=== PATIENT | female | born 1965 | race Caucasian/White ===

== ENCOUNTER 2020-01-30 12:23 | Inpatient (IN) | payer MEDICAID ==
[~2020-01-30] VITALS: Ht 165.1 cm; Wt 73.1 kg
[2020-01-30 13:46] LABS: CHLORIDE 105 mEq/L (98-107)
[2020-01-30 13:54] LABS: BASOPHILS % 0.6 % (0.0-2.0); EOSINOPHILS % 1.3 % (0.0-5.0); HEMATOCRIT. 36.1 % (36.0-48.0); HEMOGLOBIN. 12.4 g/dL (12.0-16.0); MEAN CORPUSCULAR HEMOGLOBIN 30.2 pg (28.0-32.0); MEAN CORPUSCULAR VOLUME 88.2 fL (81.0-99.0); NEUTROPHILS % 52.1 % (40.0-76.0); PLATELET 418 x1000/uL (130-400); RED CELL DISTRIBUTION WIDTH 12.7 % (11.6-14.6)
[2020-01-30] MEDS ORDERED: ASPIRIN 325MG EC TABLET PO ONE (14:00)
[2020-01-30] MEDS ORDERED: CLONIDINE 0.1MG TABLET PO PRN (16:45)
[2020-01-30] MEDS ORDERED: ONDANSETRON HCL 4MG/2ML INJ IV PRN (16:45)
[2020-01-30] MEDS ORDERED: MORPHINE SULFATE 2 MG/ML CPJ (NOT FOR IM USE) IV PRN (16:45)
[2020-01-30] MEDS ORDERED: IPRATROPIUM/ALBUTEROL 0.5-3(2.5)MG/3ML NEB HHN PRN (16:45)
[2020-01-30 16:55] LABS: PHOSPHORUS 3.6 mg/dL (2.5-4.9)
[2020-01-30 17:50] VITALS: BP 145/71
[2020-01-30] MEDS ORDERED: METF-416 MT (18:04)
[2020-01-30] MEDS ORDERED: ATOR-2 MT (18:04)
[2020-01-30 18:41] VITALS: BP 145/71
[2020-01-30 20:00] VITALS: BP 142/75
[2020-01-30] MEDS: BLOOD SUGAR DIAGNOSTIC STRIP TEST SCH (20:34)
[2020-01-30] MEDS ORDERED: DEXTROSE 50% WATER 50ML SYRINGE IV PRN (21:45)
[2020-01-30 22:00] VITALS: BP 150/75
[2020-01-30] MEDS: ATORVASTATIN CALCIUM 40MG TABLET PO SCH (22:10)
[2020-01-30] MEDS: METOPROLOL TARTRATE 25MG TABLET PO SCH (22:10)
[2020-01-30] MEDS: INSULIN LISPRO 100 UNITS/ML SUBCUT SCH (22:12)
[2020-01-31] VITALS (14 sets, daily range): BP systolic 108–146; BP diastolic 53–70
[2020-01-31 06:36] LABS: BASOPHILS % 0.4 % (0.0-2.0); EOSINOPHILS % 1.4 % (0.0-5.0); HEMATOCRIT. 34.4 % (36.0-48.0); HEMOGLOBIN. 11.8 g/dL (12.0-16.0); LYMPHOCYTES % 31.9 % (20.0-50.0); MEAN CORPUSCULAR HEMOGLOBIN 30.1 pg (28.0-32.0); MEAN CORPUSCULAR VOLUME 87.7 fL (81.0-99.0); MEAN PLATELET VOLUME 9.1 fl (7.4-10.4); MONOCYTES % 6.8 % (2.0-8.0); NEUTROPHILS % 59.5 % (40.0-76.0); PLATELET 399 x1000/uL (130-400); RED BLOOD CELL COUNT 3.93 mill/uL (4.2-5.4); RED CELL DISTRIBUTION WIDTH 13.1 % (11.6-14.6)
[2020-01-31] MEDS: BLOOD SUGAR DIAGNOSTIC STRIP TEST SCH ×4 (06:36→22:17)
[2020-01-31 07:01] LABS: CHLORIDE 103 mEq/L (98-107)
[2020-01-31 07:11] LABS: HDL CHOLESTEROL 30 mg/dL (40-59); LDL CHOLESTEROL 110 mg/dL (5-100)
[2020-01-31] MEDS ORDERED: METFORMIN HCL 500MG TABLET PO SCH (07:20)
[2020-01-31] MEDS: INSULIN LISPRO 100 UNITS/ML SUBCUT SCH ×4 (07:20→22:50)
[2020-01-31] MEDS: METOPROLOL TARTRATE 25MG TABLET PO SCH ×2 (09:12→22:47)
[2020-01-31] MEDS ORDERED: FENTANYL CITRATE/PF 50MCG/ML 2ML VIAL ONE (11:29)
[2020-01-31] MEDS ORDERED: LIDOCAINE HCL 1% 20ML VIAL (Pyxis) INJ ONE (11:29)
[2020-01-31] MEDS ORDERED: MIDAZOLAM HCL 2 MG/2 ML VIAL ONE (11:29)
[2020-01-31] MEDS ORDERED: VERAPAMIL HCL 2.5 MG/1 ML 2ML VIAL IV ONE (11:29)
[2020-01-31] MEDS ORDERED: IODIXANOL 320MG/ML 100 ML BOTTLE IV ONE (11:30)
[2020-01-31] MEDS ORDERED: NITROGLYCERIN 0.4MG TABLET SL SL PRN (13:30)
[2020-01-31] MEDS: ASPIRIN 81MG TABLET PO SCH (13:45)
[2020-01-31] MEDS: SODIUM CHLORIDE 0.45% 1,000 ML IV SCH (13:45)
[2020-01-31] MEDS ORDERED: HEPARIN SODIUM 1,000 UNIT/1ML VIAL IV ONE (16:12)
[2020-01-31] MEDS ORDERED: HEPARIN 5000 UNITS/ML VIAL IV PRN ×2 (16:30→22:00)
[2020-01-31 16:43] LABS: PROTHROMBIN TIME 10.9 sec (9.6-11.0)
[2020-01-31] MEDS ORDERED: HEPARIN 5000 UNITS/ML VIAL IV SCH (17:00)
[2020-01-31] MEDS: ACETAMINOPHEN 325MG TABLET PO PRN (17:47)
[2020-01-31] MEDS: ISOSORBIDE DINITRATE 10MG TABLET PO SCH (17:53)
[2020-01-31] MEDS ORDERED: POTASSIUM CHLORIDE 20MEQ TABLET SR PO NR (18:15)
[2020-01-31] MEDS: HEPARIN 25,000 UNITS PREMIX 250 ML IV PRN (20:49)
[2020-01-31] MEDS ORDERED: DIPHENHYDRAMINE 25MG CAPSULE PO PRN (21:00)
[2020-01-31] MEDS ORDERED: CHLORHEXIDINE GLUCONATE 4% EXTERNAL USE TOP SCH (21:00)
[2020-01-31] MEDS ORDERED: DOCUSATE SODIUM 100MG CAPSULE PO SCH (21:00)
[2020-01-31] MEDS ORDERED: ASCORBIC ACID 500 MG TABLET PO SCH (21:00)
[2020-01-31] MEDS: ATORVASTATIN CALCIUM 40MG TABLET PO SCH (22:47)
[2020-01-31] MEDS: ALLOPURINOL 300 MG TABLET PO SCH (22:48)
[2020-02-01] VITALS (13 sets, daily range): BP systolic 98–146; BP diastolic 46–66
[2020-02-01] MEDS: SODIUM CHLORIDE 0.45% 1,000 ML IV SCH ×2 (02:02→16:26)
[2020-02-01 04:30] LABS: BASOPHILS % 0.5 % (0.0-2.0); EOSINOPHILS % 1.1 % (0.0-5.0); HEMATOCRIT. 35.3 % (36.0-48.0); HEMOGLOBIN. 11.8 g/dL (12.0-16.0); LYMPHOCYTES % 30.9 % (20.0-50.0); MEAN CORPUSCULAR HEMOGLOBIN 29.4 pg (28.0-32.0); MEAN CORPUSCULAR VOLUME 88.1 fL (81.0-99.0); MEAN PLATELET VOLUME 9.2 fl (7.4-10.4); MONOCYTES % 5.5 % (2.0-8.0); PLATELET 406 x1000/uL (130-400); RED BLOOD CELL COUNT 4.01 mill/uL (4.2-5.4); RED CELL DISTRIBUTION WIDTH 12.8 % (11.6-14.6)
[2020-02-01 04:41] LABS: CHLORIDE 105 mEq/L (98-107)
[2020-02-01] MEDS: ALLOPURINOL 300 MG TABLET PO SCH (05:46)
[2020-02-01] MEDS: HEPARIN 5000 UNITS/ML VIAL IV PRN (06:20)
[2020-02-01] MEDS: BLOOD SUGAR DIAGNOSTIC STRIP TEST SCH ×4 (06:54→21:30)
[2020-02-01] MEDS ORDERED: CHLORHEXIDINE GLUCONATE 4% EXTERNAL USE TOP SCH (09:00)
[2020-02-01] MEDS: ASPIRIN 81MG TABLET PO SCH (09:04)
[2020-02-01] MEDS: METOPROLOL TARTRATE 25MG TABLET PO SCH ×2 (09:05→21:22)
[2020-02-01] MEDS: ISOSORBIDE DINITRATE 10MG TABLET PO SCH ×3 (09:05→17:10)
[2020-02-01] MEDS: ACETAMINOPHEN 325MG TABLET PO PRN ×2 (09:06→22:10)
[2020-02-01] MEDS: INSULIN LISPRO 100 UNITS/ML SUBCUT SCH ×4 (09:07→22:07)
[2020-02-01] MEDS ORDERED: EPOETIN ALFA 10000UNITS/ML VIAL SUBCUT ONE (11:30)
[2020-02-01] MEDS ORDERED: EPOETIN ALFA-EPBX 10,000 UNIT/ML VIAL SUBCUT NR (13:00)
[2020-02-01] MEDS: ATORVASTATIN CALCIUM 40MG TABLET PO SCH (21:22)
[2020-02-02] VITALS (15 sets, daily range): BP systolic 107–171; BP diastolic 54–85
[2020-02-02] MEDS: HEPARIN 25,000 UNITS PREMIX 250 ML IV PRN (02:30)
[2020-02-02] MEDS: SODIUM CHLORIDE 0.45% 1,000 ML IV SCH ×2 (03:45→22:52)
[2020-02-02] MEDS: BLOOD SUGAR DIAGNOSTIC STRIP TEST SCH ×4 (06:17→21:54)
[2020-02-02 06:48] LABS: BASOPHILS % 0.7 % (0.0-2.0); EOSINOPHILS % 1.3 % (0.0-5.0); HEMATOCRIT. 36.6 % (36.0-48.0); HEMOGLOBIN. 12.3 g/dL (12.0-16.0); LYMPHOCYTES % 35.2 % (20.0-50.0); MEAN CORPUSCULAR HEMOGLOBIN 30.1 pg (28.0-32.0); MEAN CORPUSCULAR VOLUME 89.2 fL (81.0-99.0); MEAN PLATELET VOLUME 9.8 fl (7.4-10.4); MONOCYTES % 7.3 % (2.0-8.0); NEUTROPHILS % 55.5 % (40.0-76.0); PLATELET 317 x1000/uL (130-400); RED CELL DISTRIBUTION WIDTH 12.8 % (11.6-14.6)
[2020-02-02 07:05] LABS: CHLORIDE 103 mEq/L (98-107)
[2020-02-02] MEDS: HEPARIN 5000 UNITS/ML VIAL IV PRN (07:52)
[2020-02-02] MEDS: ISOSORBIDE DINITRATE 10MG TABLET PO SCH ×3 (09:14→18:05)
[2020-02-02] MEDS: METOPROLOL TARTRATE 25MG TABLET PO SCH ×2 (09:14→22:05)
[2020-02-02] MEDS: ASPIRIN 81MG TABLET PO SCH (09:14)
[2020-02-02] MEDS ORDERED: FUROSEMIDE 40MG/4ML VIAL IVP SCH (12:00)
[2020-02-02] MEDS: INSULIN LISPRO 100 UNITS/ML SUBCUT SCH ×4 (12:20→22:14)
[2020-02-02] MEDS ORDERED: MAGNESIUM 4 G PREMIX 100 ML IV SCH (13:00)
[2020-02-02] MEDS ORDERED: GADOTERATE MEGLUMINE 5 MMOL/10 ML VIAL IV ONE (16:54)
[2020-02-02] MEDS ORDERED: CHLORHEXIDINE GLUCONATE 4% EXTERNAL USE TOP SCH (21:00)
[2020-02-02] MEDS: ATORVASTATIN CALCIUM 40MG TABLET PO SCH (22:04)
[2020-02-02] MEDS: ACETAMINOPHEN 325MG TABLET PO PRN (22:51)
[2020-02-03] VITALS (40 sets, daily range): BP systolic 63–174; BP diastolic 49–95
[2020-02-03 05:30] LABS: CLARITY URINE CLOUDY (CLEAR); COLOR URINE YELLOW (YELLOW); KETONES URINE NEGATIVE (NEGATIVE); LEUKOCYTE ESTERASE URINE 2+ (NEGATIVE); NITRITE URINE NEGATIVE (NEGATIVE); OCCULT BLOOD URINE NEGATIVE (NEGATIVE); PH URINE 5.5 (4.5-8.0); PROTEIN URINE NEGATIVE (NEGATIVE); SPECIFIC GRAVITY URINE 1.025 (1.005-1.030)
[2020-02-03 05:34] LABS: BASOPHILS % 0.8 % (0.0-2.0); EOSINOPHILS % 1.3 % (0.0-5.0); HEMATOCRIT. 32.5 % (36.0-48.0); HEMOGLOBIN. 11.1 g/dL (12.0-16.0); LYMPHOCYTES % 30.8 % (20.0-50.0); MEAN CORPUSCULAR HEMOGLOBIN 30.2 pg (28.0-32.0); MEAN CORPUSCULAR VOLUME 88.1 fL (81.0-99.0); MEAN PLATELET VOLUME 9.5 fl (7.4-10.4); MONOCYTES % 7.2 % (2.0-8.0); NEUTROPHILS % 59.9 % (40.0-76.0); PLATELET 389 x1000/uL (130-400); RED BLOOD CELL COUNT 3.69 mill/uL (4.2-5.4); RED CELL DISTRIBUTION WIDTH 12.8 % (11.6-14.6)
[2020-02-03 06:16] LABS: CHLORIDE 102 mEq/L (98-107)
[2020-02-03] MEDS: BLOOD SUGAR DIAGNOSTIC STRIP TEST SCH ×10 (06:23→23:58)
[2020-02-03] MEDS: INSULIN LISPRO 100 UNITS/ML SUBCUT SCH ×2 (08:03→11:30)
[2020-02-03] MEDS ORDERED: FUROSEMIDE 40MG/4ML VIAL IVP SCH (08:15)
[2020-02-03] MEDS: SODIUM CHLORIDE 0.45% 1,000 ML IV SCH ×2 (08:48→20:21)
[2020-02-03] MEDS: ASPIRIN 81MG TABLET PO SCH (08:52)
[2020-02-03] MEDS: METOPROLOL TARTRATE 25MG TABLET PO SCH ×2 (08:52→20:58)
[2020-02-03] MEDS ORDERED: CHLORHEXIDINE GLUCONATE 4% EXTERNAL USE TOP SCH (09:00)
[2020-02-03] MEDS ORDERED: EPINEPHRINE 5 MG in DEXT 5% WATER 245 ML IV ONE (09:30)
[2020-02-03] MEDS ORDERED: NOREPINEPHRINE 8 MG in DEXT 5% WATER 242 ML IV ONE (09:30)
[2020-02-03] MEDS ORDERED: DEL NIDO ELECTROLYTE-S(PH 7.4) 1,000 ML IV ONE ×2 (09:30)
[2020-02-03] MEDS ORDERED: CEFAZOLIN 2,000 MG in DEXT 5% WATER 100 ML IV NR (09:30)
[2020-02-03] MEDS ORDERED: PAPAVERINE HCL 180MG in SODIUM CHLORIDE 0.9% 24ML IV ONE (09:30)
[2020-02-03] MEDS ORDERED: INSULIN REGULAR (DRIP) 100 UNITS in SODIUM CHLORIDE 0.9% 99 ML IV ONE (09:30)
[2020-02-03] MEDS ORDERED: SKIN ADHESIVE 0.7 GM EA TOP ONE (09:59)
[2020-02-03] MEDS ORDERED: MAGNESIUM SULFATE 5GM/10ML VIAL IV ONE (10:00)
[2020-02-03] MEDS ORDERED: CEFTRIAXONE 1 G PREMIX 50 ML IV SCH (10:00)
[2020-02-03] MEDS ORDERED: BACITRACIN 50,000 UNITS/VIAL ONE (10:00)
[2020-02-03] MEDS ORDERED: POTASSIUM CHLORIDE 40MEQ/20ML INJ IV ONE (10:00)
[2020-02-03] MEDS ORDERED: THROMBIN (BOVINE) 5000 UNITS/VIAL TOP ONE (10:00)
[2020-02-03] MEDS ORDERED: ALBUMIN HUMAN 25GM/100ML (25%) IV ONE (10:00)
[2020-02-03] MEDS ORDERED: HEPARIN 1000 UNITS/ML 10ML ONE ×3 (10:00→13:28)
[2020-02-03] MEDS ORDERED: ACETAMINOPHEN 500MG TABLET PO NR (10:16)
[2020-02-03] MEDS ORDERED: DOPAMINE 400MG/250ML PREMIX 250 ML IV ONE (10:54)
[2020-02-03] MEDS ORDERED: HYDROMORPHONE HCL/PF 2MG/ML (OR) ONE (12:07)
[2020-02-03] MEDS ORDERED: DEXAMETHASONE 4MG/ML 1ML VIAL ONE (12:09)
[2020-02-03] MEDS ORDERED: ROCURONIUM BROMIDE 10MG/ML VIAL 5ML IV ONE (12:09)
[2020-02-03] MEDS ORDERED: PROPOFOL 200MG/20ML VIAL IV ONE (12:09)
[2020-02-03] MEDS ORDERED: CEFAZOLIN SODIUM 1000MG/VIAL ONE (12:40)
[2020-02-03] MEDS ORDERED: FUROSEMIDE 100MG/10ML VIAL ONE (12:40)
[2020-02-03] MEDS ORDERED: VANCOMYCIN HCL 1 GM/VIAL ONE (12:52)
[2020-02-03] MEDS ORDERED: SODIUM CHLORIDE 0.9% 10ML VIAL ONE (13:12)
[2020-02-03] MEDS ORDERED: CALCIUM CHLORIDE 1GM/10ML SYR IV ONE (14:23)
[2020-02-03] MEDS ORDERED: PROTAMINE SULFATE 10MG/ML VIAL 25ML IV ONE (14:47)
[2020-02-03] MEDS ORDERED: SODIUM BICARBONATE 8.4% 1 MEQ/ML 50ML SYR IV ONE (15:07)
[2020-02-03] MEDS ORDERED: ALBUMIN HUMAN 12.5G/250ML (5%) IV ONE (15:21)
[2020-02-03] MEDS ORDERED: MORPHINE SULFATE 2 MG/ML CPJ (NOT FOR IM USE) IV PRN (15:45)
[2020-02-03] MEDS ORDERED: MAGNESIUM 2 G PREMIX 50 ML IV PRN (15:45)
[2020-02-03] MEDS ORDERED: MAGNESIUM SULFATE 3 GM in DEXT 5% WATER 100 ML IV PRN (15:45)
[2020-02-03] MEDS ORDERED: ALBUMIN HUMAN 12.5G/250ML (5%) IV PRN (15:45)
[2020-02-03] MEDS ORDERED: ALBUMIN HUMAN 25GM/100ML (25%) IV PRN (15:45)
[2020-02-03] MEDS ORDERED: CALCIUM CHLORIDE 3,000 MG in DEXT 5% WATER 250 ML IV PRN (15:45)
[2020-02-03] MEDS ORDERED: EPINEPHRINE 5 MG in DEXT 5% WATER 245 ML IV SCH (15:45)
[2020-02-03] MEDS ORDERED: MAGNESIUM 1 G PREMIX 100 ML IV PRN (15:45)
[2020-02-03] MEDS ORDERED: ACETAMINOPHEN 325MG TABLET PO PRN (15:45)
[2020-02-03] MEDS ORDERED: BLOOD SUGAR DIAGNOSTIC STRIP TEST SCH ×3 (16:00→18:00)
[2020-02-03] MEDS ORDERED: KETOROLAC 30MG/ML VIAL ONE (16:00)
[2020-02-03] MEDS ORDERED: DEXTROSE 50% WATER 50ML SYRINGE IV PRN ×3 (16:15→17:30)
[2020-02-03 16:19] LABS: CHLORIDE 109 mEq/L (98-107); HEMATOCRIT. 27.9 % (36.0-48.0); HEMOGLOBIN. 9.6 g/dL (12.0-16.0); MEAN CORPUSCULAR HEMOGLOBIN 30.3 pg (28.0-32.0); MEAN CORPUSCULAR VOLUME 87.9 fL (81.0-99.0); MEAN PLATELET VOLUME 8.8 fl (7.4-10.4); PLATELET 387 x1000/uL (130-400); RED BLOOD CELL COUNT 3.17 mill/uL (4.2-5.4); RED CELL DISTRIBUTION WIDTH 12.6 % (11.6-14.6)
[2020-02-03] MEDS ORDERED: KCL 10MEQ/50ML PREMIX 200 ML IV PRN (16:45)
[2020-02-03 17:00] LABS: PLATELET ESTIMATE NORMAL
[2020-02-03] MEDS ORDERED: DOPAMINE 400MG/250ML PREMIX 250 ML IV SCH (17:00)
[2020-02-03] MEDS: INSULIN REGULAR (DRIP) 100 UNITS in SODIUM CHLORIDE 0.9% 100 ML IV SCH (17:02)
[2020-02-03] MEDS: BACITRACIN 15GM TUBE TOP SCH (17:18)
[2020-02-03] MEDS: FAMOTIDINE 20MG/2ML VIAL IV SCH (17:18)
[2020-02-03] MEDS: DOCUSATE SODIUM 100MG CAPSULE PO SCH (17:18)
[2020-02-03] MEDS: ONDANSETRON HCL 4MG/2ML INJ IV PRN (18:10)
[2020-02-03] MEDS: KETOROLAC 30MG/ML VIAL IV PRN (19:27)
[2020-02-03] MEDS ORDERED: KCL 10MEQ/50ML PREMIX 100 ML IV PRN (19:45)
[2020-02-03] MEDS ORDERED: KCL 10MEQ/50ML PREMIX 150 ML IV PRN (19:45)
[2020-02-03] MEDS: CEFAZOLIN 1000MG PREMIX 50 ML IV SCH (20:21)
[2020-02-03] MEDS: IPRATROPIUM/ALBUTEROL 0.5-3(2.5)MG/3ML NEB HHN SCH (20:49)
[2020-02-03] MEDS: ATORVASTATIN CALCIUM 40MG TABLET PO SCH (20:58)
[2020-02-03 22:14] LABS: HEMATOCRIT. 26.1 % (36.0-48.0); HEMOGLOBIN. 9.1 g/dL (12.0-16.0); MEAN CORPUSCULAR HEMOGLOBIN 30.4 pg (28.0-32.0); MEAN CORPUSCULAR VOLUME 87.4 fL (81.0-99.0); MEAN PLATELET VOLUME 8.7 fl (7.4-10.4); PLATELET 346 x1000/uL (130-400); RED BLOOD CELL COUNT 2.99 mill/uL (4.2-5.4); RED CELL DISTRIBUTION WIDTH 12.7 % (11.6-14.6)
[2020-02-03 22:21] LABS: CHLORIDE 110 mEq/L (98-107)
[2020-02-03 22:38] LABS: PLATELET ESTIMATE NORMAL
[2020-02-04] VITALS (75 sets, daily range): BP systolic 87–172; BP diastolic 14–70
[2020-02-04] MEDS: IPRATROPIUM/ALBUTEROL 0.5-3(2.5)MG/3ML NEB HHN SCH ×7 (00:09→23:56)
[2020-02-04] MEDS: ACETAMINOPHEN 325MG TABLET PO PRN (00:23)
[2020-02-04] MEDS: ONDANSETRON HCL 4MG/2ML INJ IV PRN ×5 (00:23→23:49)
[2020-02-04] MEDS: BLOOD SUGAR DIAGNOSTIC STRIP TEST SCH ×18 (00:27→20:03)
[2020-02-04 04:10] LABS: BASOPHILS % 0.7 % (0.0-2.0); LYMPHOCYTES % 10.5 % (20.0-50.0); MEAN CORPUSCULAR HEMOGLOBIN 29.9 pg (28.0-32.0); MEAN CORPUSCULAR VOLUME 88.4 fL (81.0-99.0); MEAN PLATELET VOLUME 8.6 fl (7.4-10.4); MONOCYTES % 7.9 % (2.0-8.0); NEUTROPHILS % 80.9 % (40.0-76.0); PLATELET 252 x1000/uL (130-400); RED BLOOD CELL COUNT 2.14 mill/uL (4.2-5.4); RED CELL DISTRIBUTION WIDTH 12.8 % (11.6-14.6)
[2020-02-04] MEDS: CEFAZOLIN 1000MG PREMIX 50 ML IV SCH ×3 (04:12→20:03)
[2020-02-04 04:20] LABS: CHLORIDE 109 mEq/L (98-107)
[2020-02-04 04:27] LABS: HEMOGLOBIN. 6.4 g/dL (12.0-16.0)
[2020-02-04 04:28] LABS: HEMATOCRIT. 18.9 % (36.0-48.0)
[2020-02-04] MEDS ORDERED: FUROSEMIDE 20MG/2ML VIAL IVP NR (04:45)
[2020-02-04] MEDS: KETOROLAC 30MG/ML VIAL IV PRN (05:16)
[2020-02-04] MEDS: INSULIN REGULAR (DRIP) 100 UNITS in SODIUM CHLORIDE 0.9% 100 ML IV SCH (05:33)
[2020-02-04] MEDS: ASPIRIN 81MG TABLET PO SCH (08:22)
[2020-02-04] MEDS: FAMOTIDINE 20MG/2ML VIAL IV SCH (08:22)
[2020-02-04] MEDS: DOCUSATE SODIUM 100MG CAPSULE PO SCH ×2 (08:23→16:46)
[2020-02-04] MEDS: METOPROLOL TARTRATE 25MG TABLET PO SCH ×2 (08:23→20:03)
[2020-02-04] MEDS: OXYCODONE HCL/ACETAMINOPHEN 5/325MG TABLET PO PRN ×3 (08:23→23:49)
[2020-02-04] MEDS: SODIUM CHLORIDE 0.45% 1,000 ML IV SCH ×2 (09:16→22:44)
[2020-02-04] MEDS: BACITRACIN 15GM TUBE TOP SCH ×2 (10:24→16:49)
[2020-02-04] MEDS: CEFTRIAXONE 1,000 MG in DEXTROSE 5% WATER 50 ML IV SCH (12:37)
[2020-02-04] MEDS ORDERED: FUROSEMIDE 40MG/4ML VIAL IVP SCH (13:30)
[2020-02-04] MEDS ORDERED: DEXTROSE 50% WATER 50ML SYRINGE IV PRN (16:00)
[2020-02-04 17:05] LABS: BASOPHILS % 0.7 % (0.0-2.0); HEMATOCRIT. 33.4 % (36.0-48.0); HEMOGLOBIN. 11.3 g/dL (12.0-16.0); LYMPHOCYTES % 17.2 % (20.0-50.0); MEAN CORPUSCULAR HEMOGLOBIN 29.4 pg (28.0-32.0); MEAN CORPUSCULAR VOLUME 86.6 fL (81.0-99.0); MEAN PLATELET VOLUME 8.7 fl (7.4-10.4); MONOCYTES % 8.7 % (2.0-8.0); NEUTROPHILS % 73.4 % (40.0-76.0); PLATELET 311 x1000/uL (130-400); RED BLOOD CELL COUNT 3.86 mill/uL (4.2-5.4); RED CELL DISTRIBUTION WIDTH 14.1 % (11.6-14.6)
[2020-02-04] MEDS: INSULIN LISPRO 100 UNITS/ML SUBCUT SCH ×2 (17:56→20:03)
[2020-02-04] MEDS ORDERED: PHENOL/SODIUM PHENOLATE 1.4% SRPAY 177ML MM PRN (19:00)
[2020-02-04] MEDS: ATORVASTATIN CALCIUM 40MG TABLET PO SCH (20:03)
[2020-02-04] MEDS: THROAT LOZENGES-BENZOCAINE/MENTH/CETYLPYRD CL LOZENGES MM PRN (20:12)
[2020-02-04] MEDS ORDERED: FUROSEMIDE 40MG/4ML VIAL IVP NR (23:15)
[2020-02-05] VITALS (24 sets, daily range): BP systolic 93–134; BP diastolic 40–80
[2020-02-05] MEDS: IPRATROPIUM/ALBUTEROL 0.5-3(2.5)MG/3ML NEB HHN SCH ×5 (04:16→20:08)
[2020-02-05 06:33] LABS: BASOPHILS % 0.3 % (0.0-2.0); HEMATOCRIT. 32.7 % (36.0-48.0); LYMPHOCYTES % 16.4 % (20.0-50.0); MEAN CORPUSCULAR HEMOGLOBIN 29.3 pg (28.0-32.0); MEAN CORPUSCULAR VOLUME 87.3 fL (81.0-99.0); MEAN PLATELET VOLUME 9.3 fl (7.4-10.4); MONOCYTES % 7.6 % (2.0-8.0); NEUTROPHILS % 75.7 % (40.0-76.0); PLATELET 304 x1000/uL (130-400); RED BLOOD CELL COUNT 3.74 mill/uL (4.2-5.4); RED CELL DISTRIBUTION WIDTH 14.1 % (11.6-14.6)
[2020-02-05 06:46] LABS: CHLORIDE 99 mEq/L (98-107)
[2020-02-05] MEDS: ONDANSETRON HCL 4MG/2ML INJ IV PRN (06:54)
[2020-02-05] MEDS ORDERED: FUROSEMIDE 40MG/4ML VIAL IVP SCH ×2 (07:45→13:00)
[2020-02-05] MEDS: BLOOD SUGAR DIAGNOSTIC STRIP TEST SCH ×4 (07:50→21:00)
[2020-02-05] MEDS: FAMOTIDINE 20MG/2ML VIAL IV SCH (07:57)
[2020-02-05] MEDS: ASPIRIN 81MG TABLET PO SCH (07:57)
[2020-02-05] MEDS: DOCUSATE SODIUM 100MG CAPSULE PO SCH ×2 (07:57→17:34)
[2020-02-05] MEDS: BACITRACIN 15GM TUBE TOP SCH ×2 (07:58→17:29)
[2020-02-05] MEDS: INSULIN LISPRO 100 UNITS/ML SUBCUT SCH ×4 (07:58→22:40)
[2020-02-05] MEDS: METOPROLOL TARTRATE 25MG TABLET PO SCH ×2 (07:59→22:39)
[2020-02-05] MEDS ORDERED: MAGNESIUM 4 G PREMIX 100 ML IV SCH ×2 (09:00→14:00)
[2020-02-05] MEDS: CEFTRIAXONE 1,000 MG in DEXTROSE 5% WATER 50 ML IV SCH (09:02)
[2020-02-05] MEDS: THROAT LOZENGES-BENZOCAINE/MENTH/CETYLPYRD CL LOZENGES MM PRN (17:04)
[2020-02-05] MEDS: ATORVASTATIN CALCIUM 40MG TABLET PO SCH (22:38)
[2020-02-05] MEDS: INSULIN GLARGINE UD 100 UNITS/ML SYR SUBCUT SCH (22:42)
[2020-02-06] VITALS (22 sets, daily range): BP systolic 107–135; BP diastolic 33–75
[2020-02-06] MEDS: IPRATROPIUM/ALBUTEROL 0.5-3(2.5)MG/3ML NEB HHN SCH ×7 (00:10→23:56)
[2020-02-06 05:59] LABS: EOSINOPHILS % 0.2 % (0.0-5.0); HEMOGLOBIN. 10.8 g/dL (12.0-16.0); LYMPHOCYTES % 23.5 % (20.0-50.0); MEAN CORPUSCULAR HEMOGLOBIN 29.3 pg (28.0-32.0); MEAN CORPUSCULAR VOLUME 87.2 fL (81.0-99.0); MEAN PLATELET VOLUME 8.7 fl (7.4-10.4); MONOCYTES % 7.7 % (2.0-8.0); NEUTROPHILS % 67.6 % (40.0-76.0); PLATELET 301 x1000/uL (130-400); RED BLOOD CELL COUNT 3.67 mill/uL (4.2-5.4); RED CELL DISTRIBUTION WIDTH 13.8 % (11.6-14.6)
[2020-02-06 06:07] LABS: CHLORIDE 103 mEq/L (98-107)
[2020-02-06] MEDS: BLOOD SUGAR DIAGNOSTIC STRIP TEST SCH ×4 (07:50→20:33)
[2020-02-06] MEDS: INSULIN LISPRO 100 UNITS/ML SUBCUT SCH ×4 (08:20→21:08)
[2020-02-06 08:51] LABS: BG SAMPLE SITE Blood Arterial; BG VENT MODE MASK-NRB
[2020-02-06 08:52] LABS: BG FRACTION INSPIRED OXYGEN 100
[2020-02-06 08:53] LABS: BG PH 7.317 (7.350-7.450)
[2020-02-06 08:55] LABS: BG BASE EXCESS -4.5 mmol/L (-2.0-2.0); BG HCO3 ACT 21.4 mmol/L (22.0-26.0); BG PCO2 42.7 mmHg (35.0-45.0); BG PO2 142.5 mmHg (75.0-100.0); BG TOTAL HEMOGLOBIN 10.4 g/dL (12.0-18.0)
[2020-02-06 08:56] LABS: BG CARBOXYHEMOGLOBIN 0.2 % (0.5-1.5); BG METHEMOGLOBIN 0.2 % (0.0-1.5); BG OXYHEMOGLOBIN 97.6 % (94.0-97.0)
[2020-02-06] MEDS: BACITRACIN 15GM TUBE TOP SCH ×2 (09:00→16:42)
[2020-02-06] MEDS: FAMOTIDINE 20MG/2ML VIAL IV SCH (09:41)
[2020-02-06] MEDS: DOCUSATE SODIUM 100MG CAPSULE PO SCH ×2 (09:41→16:42)
[2020-02-06] MEDS: FUROSEMIDE 40MG TABLET PO SCH (09:41)
[2020-02-06] MEDS: CEFTRIAXONE 1,000 MG in DEXTROSE 5% WATER 50 ML IV SCH (09:42)
[2020-02-06] MEDS: METOPROLOL TARTRATE 25MG TABLET PO SCH ×2 (09:42→21:10)
[2020-02-06] MEDS: ASPIRIN 81MG TABLET PO SCH (09:42)
[2020-02-06] MEDS: INSULIN GLARGINE UD 100 UNITS/ML SYR SUBCUT SCH ×2 (10:21→21:08)
[2020-02-06] MEDS ORDERED: FUROSEMIDE 40MG/4ML VIAL IVP SCH (10:30)
[2020-02-06] MEDS ORDERED: POLYETHYLENE GLYCOL 3350 (17GM) 1 DOSE PACK PO SCH ×2 (10:30→21:00)
[2020-02-06] MEDS ORDERED: MAGNESIUM 4 G PREMIX 100 ML IV SCH (11:30)
[2020-02-06] MEDS: CLOPIDOGREL 75MG TABLET PO SCH (11:54)
[2020-02-06] MEDS: ATORVASTATIN CALCIUM 40MG TABLET PO SCH (21:10)
[2020-02-06] MEDS: ACETAMINOPHEN 325MG TABLET PO PRN (21:18)
[2020-02-07] VITALS (9 sets, daily range): BP systolic 104–133; BP diastolic 46–85
[2020-02-07] MEDS: IPRATROPIUM/ALBUTEROL 0.5-3(2.5)MG/3ML NEB HHN SCH ×3 (04:56→13:00)
[2020-02-07] MEDS: BLOOD SUGAR DIAGNOSTIC STRIP TEST SCH ×2 (06:10→11:50)
[2020-02-07] MEDS: INSULIN LISPRO 100 UNITS/ML SUBCUT SCH ×2 (06:11→12:27)
[2020-02-07 06:34] LABS: CHLORIDE 102 mEq/L (98-107)
[2020-02-07 06:48] LABS: BASOPHILS % 0.5 % (0.0-2.0); EOSINOPHILS % 0.7 % (0.0-5.0); HEMATOCRIT. 33.1 % (36.0-48.0); HEMOGLOBIN. 11.2 g/dL (12.0-16.0); LYMPHOCYTES % 28.3 % (20.0-50.0); MEAN CORPUSCULAR HEMOGLOBIN 29.3 pg (28.0-32.0); MEAN CORPUSCULAR VOLUME 86.9 fL (81.0-99.0); MEAN PLATELET VOLUME 8.5 fl (7.4-10.4); NEUTROPHILS % 62.5 % (40.0-76.0); PLATELET 329 x1000/uL (130-400); RED BLOOD CELL COUNT 3.81 mill/uL (4.2-5.4); RED CELL DISTRIBUTION WIDTH 13.8 % (11.6-14.6)
[2020-02-07] MEDS ORDERED: FUROSEMIDE 40MG/4ML VIAL IVP NR (07:45)
[2020-02-07] MEDS: FAMOTIDINE 20MG/2ML VIAL IV SCH (08:52)
[2020-02-07] MEDS: ASPIRIN 81MG TABLET PO SCH (08:52)
[2020-02-07] MEDS: DOCUSATE SODIUM 100MG CAPSULE PO SCH (08:52)
[2020-02-07] MEDS: CLOPIDOGREL 75MG TABLET PO SCH (08:53)
[2020-02-07] MEDS: FUROSEMIDE 40MG TABLET PO SCH (08:53)
[2020-02-07] MEDS ORDERED: POTASSIUM CHLORIDE INJ 40 MEQ in DEXT 5% WATER 250 ML IV SCH (09:00)
[2020-02-07] MEDS ORDERED: MAGNESIUM 4 G PREMIX 100 ML IV SCH (09:00)
[2020-02-07] MEDS: METOPROLOL TARTRATE 25MG TABLET PO SCH (09:00)
[2020-02-07] MEDS: BACITRACIN 15GM TUBE TOP SCH (10:52)
[2020-02-07] MEDS: INSULIN GLARGINE UD 100 UNITS/ML SYR SUBCUT SCH (10:52)
[2020-02-07] MEDS ORDERED: METO25TA6 PO (11:49)
[2020-02-07] MEDS ORDERED: FURO40TA5 PO (11:49)
[2020-02-07] MEDS ORDERED: CLOP75TA15 PO (11:49)
[2020-02-07] MEDS ORDERED: ASPI-1160 PO (11:49)
[2020-02-07] MEDS: CEFTRIAXONE 1,000 MG in DEXTROSE 5% WATER 50 ML IV SCH (12:26)
[2020-02-07] MEDS: OXYCODONE HCL/ACETAMINOPHEN 5/325MG TABLET PO PRN (14:49)
== END 2020-02-07 15:22 | disposition home health service (06) | DRG 166 ==
LOC: ER 12:23 → 3WST 16:30 → EDBEDREQ 16:32 → ENRESERV 16:35 → CVICU 02-03 16:10 → 3WST 02-06 15:13
PROVIDERS: ADMIT Internal Medicine; ATTEND Internal Medicine
PROC: 4A023N7 Measurement of Cardiac Sampling and Pressure, Left Heart, Percutaneous Approach (ICD-10-PCS; principal; 2020-01-31)
PROC: B211YZZ Fluoroscopy of Multiple Coronary Arteries using Other Contrast (ICD-10-PCS; 2020-01-31)
PROC: B215YZZ Fluoroscopy of Left Heart using Other Contrast (ICD-10-PCS; 2020-01-31)
PROC: 02100Z9 Bypass Coronary Artery, One Artery from Left Internal Mammary, Open Approach (ICD-10-PCS; 2020-02-03)
PROC: 021109W Bypass Coronary Artery, Two Arteries from Aorta with Autologous Venous Tissue, Open Approach (ICD-10-PCS; 2020-02-03)
PROC: 06BQ4ZZ Excision of Left Saphenous Vein, Percutaneous Endoscopic Approach (ICD-10-PCS; 2020-02-03)
PROC: 30233N1 Transfusion of Nonautologous Red Blood Cells into Peripheral Vein, Percutaneous Approach (ICD-10-PCS; 2020-02-04)
DX: I25.110 Atherosclerotic heart disease of native coronary artery with unstable angina pectoris (principal); I21.9 Acute myocardial infarction, unspecified; I11.0 Hypertensive heart disease with heart failure; E11.9 Type 2 diabetes mellitus without complications; E78.5 Hyperlipidemia, unspecified; A41.9 Sepsis, unspecified organism; D64.9 Anemia, unspecified; E44.1 Mild protein-calorie malnutrition; E78.00 Pure hypercholesterolemia, unspecified; E83.41 Hypermagnesemia; I50.31 Acute diastolic (congestive) heart failure; I65.23 Occlusion and stenosis of bilateral carotid arteries; J96.00 Acute respiratory failure, unspecified whether with hypoxia or hypercapnia; R26.9 Unspecified abnormalities of gait and mobility; I42.9 Cardiomyopathy, unspecified; M65.331 Trigger finger, right middle finger; Z20.828 Contact with and (suspected) exposure to other viral communicable diseases; Z68.26 Body mass index [BMI] 26.0-26.9, adult; Z79.84 Long term (current) use of oral hypoglycemic drugs; Z82.49 Family history of ischemic heart disease and other diseases of the circulatory system
CPT/HCPCS: 36415; 36600; 70547; 71045; 80048; 80053; 80061; 81003; 82375; 82805; 82962; 83735; 83880; 84100; 84132; 84443; 84484; 85018; 85025; 86850; 86900; 86920; 87426; 92610; 93005; 93306; 93458; 93880; 93970; 94640; 97110; 97116; 97163; 97166; 97530; 97535; 99285; A9577; C1769; C1887; C1893; J0690; J0696; J0885; J1100; J1170; J1265; J1644; J1815; J1885; J1940; J2250; J2270; J2405; J2440; J2704; J2720; J3010; J3370; J3475; J3480; J3490; J7040; J7050; J7060; P9016; P9041; P9047; Q9967

== ENCOUNTER 2020-12-28 15:33 | Emergency (ER) | payer MEDICAID ==
[~2020-12-28] VITALS: Ht 165.1 cm; Wt 69.0 kg
[~2020-12-28 15:33] MED LIST: ASPI-1160 PO; ATOR-2 MT; CLOP-31 PO; CLOP75TA15 PO; LOSA25TA26 PO; METF-416 MT; METO25TA6 PO
[2020-12-28 15:55] VITALS: BP 117/66
[2020-12-28] MEDS ORDERED: AMOX-424 MT (17:13)
[2020-12-28] MEDS ORDERED: IBUP-2029 MT (17:14)
== END 2020-12-28 17:36 | disposition home or self-care (01) ==
LOC: ER 15:33
DX: J01.90 Acute sinusitis, unspecified (principal)
CPT/HCPCS: 99282

== ENCOUNTER 2022-11-19 16:08 | Emergency (ER) | payer MEDICAID, OTHER ==
[~2022-11-19] VITALS: Ht 157.5 cm; Wt 84.4 kg
[~2022-11-19 16:08] MED LIST changes: +AMOX-424 MT; +IBUP-2029 MT
[2022-11-19 16:12] VITALS: O2SAT 100
[2022-11-19] MEDS ORDERED: IOHEXOL-350 100 ML BOTTLE ONE (16:59)
[2022-11-19 17:10] LABS: BASOPHILS % 0.6 % (0.0-2.0); EOSINOPHILS % 0.5 % (0.0-5.0); HEMATOCRIT. 37.5 % (36.0-48.0); HEMOGLOBIN. 12.4 g/dL (12.0-16.0); LYMPHOCYTES % 29.1 % (20.0-50.0); MEAN CORPUSCULAR HEMOGLOBIN 29.7 pg (28.0-32.0); MEAN PLATELET VOLUME 8.8 fl (7.4-10.4); MONOCYTES % 5.5 % (2.0-8.0); NEUTROPHILS % 64.3 % (40.0-76.0); PLATELET 387 x1000/uL (130-400); RED BLOOD CELL COUNT 4.17 mill/uL (4.2-5.4); RED CELL DISTRIBUTION WIDTH 14.1 % (11.6-14.6); WHITE BLOOD COUNT 14.2 x1000/uL (4.5-11.0)
[2022-11-19] MEDS ORDERED: MORPHINE SULFATE 2 MG/ML CPJ (NOT FOR IM USE) IV ONE (17:15)
[2022-11-19] MEDS ORDERED: CLOPIDOGREL 75MG TABLET PO NR (17:15)
[2022-11-19 17:18] LABS: CHLORIDE 108 mEq/L (98-107); INDEX HEMOLYSI 1 (1-3); INDEX ICTERIC 1 (1-4); INDEX LIPEMIC 1 (1-3); POTASSIUM 4.2 mEq/L (3.5-5.1); SODIUM 138 mEq/L (136-145)
[2022-11-19 17:28] LABS: PROTHROMBIN TIME 10.5 sec (9.6-11.0)
[2022-11-19 17:32] LABS: ALANINE AMINOTRANSFERASE 24 IU/L (13-61); ALBUMIN 3.7 g/dL (3.4-5.0); ASPARTATE AMINOTRANSFERASE 18 IU/L (15-37); BILIRUBIN TOTAL 0.3 mg/dL (0.1-1.0); CALCIUM 9.4 mg/dL (8.5-10.1); CARBON DIOXIDE 23 mEq/L (21-32); CREATININE 0.9 mg/dL (0.6-1.3); ETHANOL BLOOD < 10 mg/dL (-10); GLUCOSE 179 mg/dL (70-105); PROTEIN TOTAL 7.7 g/dL (6.0-8.3); TROPONIN I HIGH SENSITIVITY 5 ng/L (<54); UREA NITROGEN BLOOD 17 mg/dL (7-21)
[2022-11-19 22:30] VITALS: BP 150/68; PULSE 67; RESP 13; TEMP 98.3
== END 2022-11-19 22:46 | disposition short-term general hospital (02) ==
LOC: ER 16:26 → CANBEDREQ 18:09 → ER 22:46
DX: I63.9 Cerebral infarction, unspecified (principal); I65.22 Occlusion and stenosis of left carotid artery; E11.9 Type 2 diabetes mellitus without complications; I10 Essential (primary) hypertension; E78.00 Pure hypercholesterolemia, unspecified; F32.A Depression, unspecified; Z79.899 Other long term (current) drug therapy; Z98.890 Other specified postprocedural states
CPT/HCPCS: 80053; 80320; 82962; 85025; 85610; 84484; 36415; 71045; 70496; 70498; 70450; 93005; 96374; 99291; Q9967; J2270; G0480